=== PATIENT | female | born 1985 | race Caucasian/White ===

== ENCOUNTER 2018-08-10 13:38 | Emergency (ER) | payer OTHER ==
[2018-08-10 13:46] VITALS: BP 124/76
--- NOTE | 2018-08-10 14:43 | ED Physician Documentation ---
PD HPI SKIN - Stated complaint Stated Complaint: RT BREAST PX - Chief complaint Chief Complaint: Wound - History obtained from History obtained from: Patient - History of Present Illness Timing - onset: How many days ago (2-3) Timing - duration: Days Timing - details: Abrupt onset, Still present Location: Other (right breast) Quality / character: Painful, Discolored (red), Swelling. No: Draining (she is still breast feeding and getting colostrum out, with some cloudiness to it.) Associated symptoms: Fever, Myalgias. No: Joint pain Recently seen: Not recently seen Review of Systems Constitutional: reports: Fever Nose: denies: Rhinorrhea / runny nose, Congestion Throat: denies: Sore throat Respiratory: denies: Cough GI: denies: Nausea, Vomiting, Diarrhea PD PAST MEDICAL HISTORY - Past Medical History Past Medical History: No - Present Medications Home Medications: Ambulatory Orders Medication Instructions Recorded Confirmed Cephalexin [Keflex] 500 mg PO Q6H #28 capsule 08/10/18 - Allergies Allergies/Adverse Reactions: Allergies Allergy/AdvReac Type Severity Reaction Status Date / Time No Known Drug Allergies Allergy Verified 08/10/18 13:43 - Social History Does the pt smoke?: No Smoking Status: Never smoker PD ED PE NORMAL - Vitals Vital signs reviewed: Yes - General General: Alert and oriented X 3, No acute distress, Well developed/nourished - Neck Neck: Supple, no meningeal sign, No adenopathy - Cardiac Cardiac: RRR, No murmur - Respiratory Respiratory: Clear bilaterally, Other (right breast with medial quadrant redness, tenderness, firmness c/w mastitis. ) Results - Vitals Vitals: Oxygen O2 Source Room air PD MEDICAL DECISION MAKING - ED course Complexity details: considered differential, d/w patient Departure - Departure Disposition: Home, Self Care Clinical Impression: Acute mastitis of right breast Condition: Stable Record reviewed to determine appropriate education?: Yes Instructions: ED Breast Infec Follow-Up: JARRED LEAHY [Primary Care Provider] - Prescriptions: Cephalexin [Keflex] 500 mg PO Q6H #28 capsule Comments: Warm moist towels to the breast to improve blood flow to help fight infection. Continue breast-feeding or pumping to get good flow out from the ducts. Continue ibuprofen 3 times a day. To that add Tylenol 500-650 mg every 4-6 hours if needed for pain. Cephalexin antibiotic as directed for the next week. Recheck if not improving over the next few days. Discharge Date/Time: 08/10/18 15:42
[2018-08-10] MEDS ORDERED: cephALEXin 250 MG CAPSULE PO STA (15:16)
== END 2018-08-10 15:42 | disposition home or self-care (01) ==
LOC: ED 13:38
DX: N61.0 Mastitis without abscess (principal)
CPT/HCPCS: 99283; A9270